=== PATIENT | male | born 1975 | race American Indian/Alaskan Native ===

== ENCOUNTER 2021-08-27 12:45 | Inpatient (IN) | payer SELFPAY ==
[2021-08-27 13:39] LABS: Hematocrit 30.9 % (35.5-45.6); Mean Corpuscular HGB Conc 32 % (32-34); Mean Corpuscular Volume 74 fl (84-94); Platelet Count 285 K/mm3 (140-440); Red Blood Count 4.17 M/mm3 (3.65-5.03)
[2021-08-27 13:40] LABS: Red Cell Distribution Width 22.5 % (13.2-15.2)
[2021-08-27 13:48] LABS: INR 0.97 (0.87-1.13)
[2021-08-27 13:49] LABS: Partial Thromboplastin Time 33.6 Sec. (24.2-36.6)
[2021-08-27] MEDS ORDERED: ACETAMINOPHEN 325 MG TAB PO ONE (13:59)
[2021-08-27] MEDS ORDERED: ONDANSETRON 4 MG/2 ML INJ IV ONE (13:59)
[2021-08-27] MEDS ORDERED: MORPHINE 4 MG/1 ML INJ IV ONE (13:59)
[2021-08-27 14:04] LABS: Alanine Aminotransferase 59 units/L (7-56); Albumin 2.6 g/dL (3.9-5); BUN/Creatinine Ratio 18; Blood Urea Nitrogen 25 mg/dL (9-20); Calcium 9.2 mg/dL (8.4-10.2); Hemolysis Index 3
--- NOTE | 2021-08-27 14:04 | Emergency Department Report ---
ED Extremity Problem HPI - General Chief complaint: Extremity Problem,Nontraumatic Stated complaint: SWOLLEN EXTREMITIES Time Seen by Provider: 08/27/21 13:23 Source: patient, EMS Mode of arrival: Stretcher Limitations: Physical Limitation - History of Present Illness Initial comments: 46-year-old male with a past medical history of CHF, CAD with stent x2, renal insufficiency, gout, hypertension, and CVA June 2021 resulted in some mild memory and communication deficit as well as bilateral lower extremity weakness (right greater than left) with inability to ambulate presents to the hospital today with complaints of progressive worsening lower extremity edema and arm. Patient takes a variety of medications which are not currently available for yunier tateChloe As requested from [facility] at [place]. Patient states he has been informed to take his diuretics as needed for swelling however, he is hesitant to take them due to his underlying renal insufficiency. He does not currently endorse shortness of breath. He states he has a sore to his bottom because he is currently bedbound, not ambulatory, and does not have much assistance at home for care. Patient complains of significant pain to bilateral hands due to gout right greater than left. Patient was admitted at [facility] during his recent CVA and does not have a previous visit here in [facility]. - Related Data Allergies Allergy/AdvReac Type Severity Reaction Status Date / Time No Known Allergies Allergy Verified 08/27/21 12:54 ED Review of Systems ROS: Stated complaint: SWOLLEN EXTREMITIES Other details as noted in HPI Comment: All other systems reviewed and negative ED Physical Exam - General Limitations: Physical Limitation - Other Other exam information: General: No acute distress Head: Atraumatic Eyes: normal appearance ENT: Moist mucous membranes Neck: Normal appearance, no midline tenderness Chest: Clear to auscultation bilaterally CV: Regular rate and rhythm Abdomen: Soft, normal bowel sounds, nontender, nondistended, no rebound or guarding Back: Normal inspection Extremity: arm edema R>L with right hand warmth and erythema and pain with movement, b/l pedal edema Neuro: Alert O x 3, no facial asymmetry, speech clear, lower extremity strength 2/5 with weaker plantar flexion of the right foot compared to the left. upper extremity 3/5 strength. Psych: Appropriate behavior Skin: stage 1 ulcer to gluteal fold and right upper posterior leg ED Course Vital Signs 08/27/21 08/27/21 12:52 14:05 Temperature 99.8 F H Pulse Rate 111 H Respiratory 18 Rate Blood Pressure 124/90 [Left] O2 Sat by Pulse 98 Oximetry ED Medical Decision Making - Lab Data Result diagrams: 08/27/21 13:27 08/27/21 13:27 Lab Results 08/27/21 08/27/21 08/27/21 Range/Units 13:27 13:27 13:27 WBC 19.8 H (4.5-11.0) K/mm3 RBC 4.17 (3.65-5.03) M/mm3 Hgb 10.0 L (11.8-15.2) gm/dl Hct 30.9 L (35.5-45.6) % MCV 74 L (84-94) fl MCH 24 L (28-32) pg MCHC 32 (32-34) % RDW 22.5 H (13.2-15.2) % Plt Count 285 (140-440) K/mm3 Add Manual Diff Complete Total Counted 100 Seg Neutrophils % Planing Machine Operator Seg Neuts % (Manual) 91.0 H (40.0-70.0) % Band Neutrophils % 0 % Lymphocytes % (Manual) 4.0 L (13.4-35.0) % Reactive Lymphs % (Man) 0 % Monocytes % (Manual) 5.0 (0.0-7.3) % Eosinophils % (Manual) 0 (0.0-4.3) % Basophils % (Manual) 0 (0.0-1.8) % Metamyelocytes % 0 % Myelocytes % 0 % Promyelocytes % 0 % Blast Cells % 0 % Nucleated RBC % Not Reportable Seg Neutrophils # Man 18.0 H (1.8-7.7) K/mm3 Band Neutrophils # 0.0 K/mm3 Lymphocytes # (Manual) 0.8 L (1.2-5.4) K/mm3 Abs React Lymphs (Man) 0.0 K/mm3 Monocytes # (Manual) 1.0 H (0.0-0.8) K/mm3 Eosinophils # (Manual) 0.0 (0.0-0.4) K/mm3 Basophils # (Manual) 0.0 (0.0-0.1) K/mm3 Metamyelocytes # 0.0 K/mm3 Myelocytes # 0.0 K/mm3 Promyelocytes # 0.0 K/mm3 Blast Cells # 0.0 K/mm3 WBC Morphology Not Reportable Hypersegmented Neuts Not Reportable Hyposegmented Neuts Not Reportable Hypogranular Neuts Not Reportable Smudge Cells Not Reportable Toxic Granulation Not Reportable Toxic Vacuolation Not Reportable Dohle Bodies Not Reportable Pelger-Huet Anomaly Not Reportable Lawanda Rods Not Reportable Platelet Estimate Consistent w auto Clumped Platelets Not Reportable Plt Clumps, EDTA Not Reportable Large Platelets Few Giant Platelets Not Reportable Platelet Satelliting Not Reportable Plt Morphology Comment Not Reportable RBC Morphology Not Reportable Dimorphic RBCs Not Reportable Polychromasia Not Reportable Hypochromasia 1+ Poikilocytosis Not Reportable Anisocytosis 1+ Microcytosis Not Reportable Macrocytosis Not Reportable Spherocytes Not Reportable Pappenheimer Bodies Not Reportable Sickle Cells Not Reportable Target Cells Not Reportable Tear Drop Cells Not Reportable Ovalocytes Not Reportable Helmet Cells Not Reportable Bajwa-Casar Bodies Not Reportable [place] Rings Not Reportable [place] Cells Not Reportable Bite Cells Not Reportable Crenated Cell Not Reportable Elliptocytes Not Reportable Acanthocytes (Spur) Not Reportable Rouleaux Not Reportable Hemoglobin C Crystals Not Reportable Schistocytes Not Reportable Malaria parasites Not Reportable Stu Bodies Not Reportable Hem Pathologist Commnt No PT 14.0 (12.2-14.9) Sec. INR 0.97 (0.87-1.13) APTT 33.6 (24.2-36.6) Sec. Sodium 138 (137-145) mmol/L Potassium 4.6 (3.6-5.0) mmol/L Chloride 101.1 (98-107) mmol/L Carbon Dioxide 19 L (22-30) mmol/L Anion Gap 23 mmol/L BUN 25 H (9-20) mg/dL Creatinine 1.4 H (0.8-1.3) mg/dL Estimated GFR 55 ml/min BUN/Creatinine Ratio 18 % Glucose 135 H (75-100) mg/dL Calcium 9.2 (8.4-10.2) mg/dL Total Bilirubin 2.20 H (0.1-1.2) mg/dL AST 34 (5-40) units/L ALT 59 H (7-56) units/L Alkaline Phosphatase 169 H (35-129) units/L Troponin T < 0.010 (0.00-0.029) ng/mL NT-Pro-B Natriuret Pep 5878 H (0-450) pg/mL Total Protein 8.0 (6.3-8.2) g/dL Albumin 2.6 L (3.9-5) g/dL Albumin/Globulin Ratio 0.5 % - EKG Data -: EKG Interpreted by Me EKG shows normal: sinus rhythm, ST-T waves (no stemi) Rate: tachycardia (109) - Radiology Data Radiology results: report reviewed CHEST 1 VIEW 08/27/2021 1:46 PM INDICATION / CLINICAL INFORMATION: sob. COMPARISON: None available. FINDINGS: SUPPORT DEVICES: None. HEART / MEDIASTINUM: No significant abnormality. LUNGS / PLEURA: No significant pulmonary or pleural abnormality. No pneumothorax. ADDITIONAL FINDINGS: No significant additional findings. IMPRESSION: 1. No acute findings. - Medical Decision Making 46-year-old male presents to the hospital with complaints of edema. He is also noted to have edema to upper extremities right greater than left with pain, redness, warmth to right hand. Suspicious for gout flare. Patient is noted to have SIRS as per laboratory results and was covered with vancomycin while cultures are pending. Lactic acid is not available at this time due to national shortage of lactic acid tubes required for test. He also appears that patient may benefit for additional at home care since he is currently unable to ambulate since his recent stroke. Patient will be admitted to the hospital service for further evaluation and work-up Critical Care Time: No Critical care attestation.: If time is entered above; I have spent that time in minutes in the direct care of this critically ill patient, excluding procedure time. ED Disposition Clinical Impression: SIRS (systemic inflammatory response syndrome), Gout flare, Edema, History of CVA with residual deficit, Bedbound Disposition: ADMITTED INPATIENT Is pt being admited?: Yes Does the pt Need Aspirin: No Condition: Stable Time of Disposition: 15:49
--- NOTE | 2021-08-27 14:13 | XRay Report ---
CHEST 1 VIEW 08/27/2021 1:46 PM INDICATION / CLINICAL INFORMATION: sob. COMPARISON: None available. FINDINGS: SUPPORT DEVICES: None. HEART / MEDIASTINUM: No significant abnormality. LUNGS / PLEURA: No significant pulmonary or pleural abnormality. No pneumothorax. ADDITIONAL FINDINGS: No significant additional findings. IMPRESSION: 1. No acute findings. Signer Name: Jose Elias Blanco Jr, MD Signed: 08/27/2021 2:08 PM Workstation Name: [id number]
[2021-08-27 15:07] LABS: Anisocytosis 1+; Basophils % (Manual) 0 % (0.0-1.8); Eosinophils % (Manual) 0 % (0.0-4.3); Hypochromasia 1+; Large Platelets Few; Platelet Estimate Consistent w Auto; Total Cells Counted 100
[2021-08-27] MEDS ORDERED: VANCOMYCIN/NS 1 GM/250 ML 1 GM/250 ML BAG IV ONE (15:20)
--- NOTE | 2021-08-27 18:59 | History and Physical Report ---
History of Present Illness Chief complaint: I am not getting any better History of present illness: 46 YO Male with CHF (EF 20), CAD S/P Stent Placement, Gout, CVA complicated by Debility, Obesity Hypoventilation Syndrome, Gout, MDD, Medication Noncompliance presents to ED for evaluation. Patient reports "I feel weak and I am not getting any better". Patient states that for the past 4 weeks he has experienced increased weakness and decreased ability to ambulate. Patient acknowledges decreased exercise tolerance, dyspnea on exertion, dyspnea at rest, orthopnea, as well as paroxysmal nocturnal dyspnea. Patient also acknowledges medication noncompliance. Patient states that he has experienced gradual and progressive generalized weakness as well as generalized edema. EMS was notified and upon arrival the patient was found to be in distress and subsequent transported to [facility] for further care and evaluation of the aforementioned symptoms. The patient was seen and evaluated in the emergency department. All lab and imaging studies reviewed. Patient found to have clinical symptoms consistent with CHF decompensation as well as debility. The patient is currently bedbound and nonambulatory and requires 4/6 assistance with activities of daily living and has a palliative performance score 30%. Patient denies fever, chills, chest pain, palpitation, productive cough, skin rash, recent contact, or known exposure to COVID-19. No prior admission for review. No medication listed at time of admission for reconciliation. Advanced care planning conducted in ED. Past History Past Medical History: heart failure, hypertension, stroke, other (See HPI) Past Surgical History: No surgical history, Other (Reviewed) Social history: single. denies: smoking, alcohol abuse, prescription drug abuse Family history: diabetes, hypertension Medications and Allergies Allergies Allergy/AdvReac Type Severity Reaction Status Date / Time No Known Allergies Allergy Verified 08/27/21 12:54 Review of Systems Constitutional: fatigue, weakness, no weight loss, no chills, no sweats Ears, nose, mouth and throat: no ear pain, no ear discharge, no tinnitis, no decreased hearing, no nasal congestion Cardiovascular: orthopnea, shortness of breath, dyspnea on exertion, paroxysmal nocturnal dyspnea, leg edema, decreased exercise tolerance, no chest pain Respiratory: no cough, no cough with sputum Gastrointestinal: no abdominal pain, no nausea, no vomiting, no diarrhea, no constipation Genitourinary Male: no hematuria, no flank pain, no discharge, no urinary frequency, no urinary hesitancy Rectal: no pain, no incontinence, no bleeding Musculoskeletal: no neck stiffness, no neck pain, no arm numbness/tingling, no low back pain, no shooting leg pain Integumentary: no rash, no pruritis, no redness, no sores, no wounds, no jaundice Neurological: no transient paralysis, no paralysis, no weakness, no numbness, no tingling, no seizures Psychiatric: no anxiety, no memory loss, no insomnia, no hypersomnia, no change in appetite, no suicidal ideation Endocrine: no cold intolerance, no polyphagia, no polydipsia Hematologic/Lymphatic: no easy bruising, no easy bleeding, no lymphedema Allergic/Immunologic: no allergic rhinitis, no anaphylaxis Exam - Constitutional Vitals: Temp Pulse Resp BP Pulse Ox 99.8 F H 90 18 108/70 99 08/27/21 12:52 08/27/21 17:44 08/27/21 17:44 08/27/21 17:44 08/27/21 17:44 General appearance: Present: mild distress - EENT Eyes: Present: PERRL ENT: hearing intact, clear oral mucosa - Neck Neck: Present: supple, normal ROM - Respiratory Respiratory effort: normal Respiratory: bilateral: diminished, rhonchi - Cardiovascular Rhythm: regular Heart Sounds: Present: S1 & S2. Absent: rub, click - Extremities Extremities: pulses symmetrical Extremity abnormal: edema Peripheral Pulses: within normal limits - Abdominal General gastrointestinal: Present: soft, non-tender, non-distended, normal bowel sounds Male genitourinary: Present: normal - Integumentary Integumentary: Present: clear, warm, dry - Musculoskeletal Musculoskeletal: gait normal, strength equal bilaterally - Psychiatric Psychiatric: appropriate mood/affect, intact judgment & insight - Neurologic Neurologic: CNII-XII intact, moves all extremities HEART Score - HEART Score Troponin: Troponin T < 0.010 ng/mL (0.00-0.029) 08/27/21 13:27 Results - Labs CBC & Chem 7: 08/27/21 13:27 08/27/21 13:27 Labs: Abnormal lab results 08/27/21 08/27/21 Range/Units 13:27 13:27 WBC 19.8 H (4.5-11.0) K/mm3 Hgb 10.0 L (11.8-15.2) gm/dl Hct 30.9 L (35.5-45.6) % MCV 74 L (84-94) fl MCH 24 L (28-32) pg RDW 22.5 H (13.2-15.2) % Seg Neuts % (Manual) 91.0 H (40.0-70.0) % Lymphocytes % (Manual) 4.0 L (13.4-35.0) % Seg Neutrophils # Man 18.0 H (1.8-7.7) K/mm3 Lymphocytes # (Manual) 0.8 L (1.2-5.4) K/mm3 Monocytes # (Manual) 1.0 H (0.0-0.8) K/mm3 Carbon Dioxide 19 L (22-30) mmol/L BUN 25 H (9-20) mg/dL Creatinine 1.4 H (0.8-1.3) mg/dL Glucose 135 H (75-100) mg/dL Total Bilirubin 2.20 H (0.1-1.2) mg/dL ALT 59 H (7-56) units/L Alkaline Phosphatase 169 H (35-129) units/L NT-Pro-B Natriuret Pep 5878 H (0-450) pg/mL Albumin 2.6 L (3.9-5) g/dL Assessment and Plan - Patient Problems (1) CHF (congestive heart failure) Current Visit: Yes Status: Acute Qualifiers: Heart failure chronicity: acute on chronic Plan to address problem: CHF protocol: Strict I/O, monitor urine output every shift, daily weight, afterload reduction, blood pressure control, supplemental oxygen, diuresis with Lasix, echocardiogram ordered and pending at time of admission, thyroid panel, magnesium level. Cardiology team consulted in ED. (2) SIRS (systemic inflammatory response syndrome) Current Visit: Yes Status: Acute Plan to address problem: Empiric IV antibiotic therapy x1 dose. CBC, repeat CBC in AM. (3) Obesity hypoventilation syndrome Current Visit: Yes Status: Acute Plan to address problem: Balanced diet, increase physical activity discharge, outpatient pulmonary follow-up for sleep study. Outpatient bariatric surgery evaluation. (4) Debility Current Visit: Yes Status: Acute Plan to address problem: Physical therapy consulted. (5) DVT prophylaxis Current Visit: Yes Status: Acute Plan to address problem: SCD to bilateral lower extremities while in bed (6) Advance care planning Current Visit: Yes Status: Acute Plan to address problem: Disease education conducted, care plan discussed, diagnosis discussed, prognosis discussed, patient is full code. Patient acknowledges understanding and ag reement with care plan, +30 minutes. (7) Preventative health care Current Visit: Yes Status: Acute Plan to address problem: Patient counseled regarding balanced diet, meal planning, increase physical acti vity at discharge, weight reduction, calorie counting, calculation of macronutrients. Risk factor reduction. Patient instructed to follow-up with primary care physician as outpatient for all age and risk factor appropriate screening tests. +30 minutes.
[2021-08-27] MEDS ORDERED: ONDANSETRON 4 MG/2 ML INJ IV PRN (20:00)
[2021-08-27] MEDS ORDERED: oxyCODONE /ACETAMINOPHEN 5-325MG TAB PO PRN (20:00)
[2021-08-27] MEDS ORDERED: ACETAMINOPHEN 325 MG TAB PO PRN (20:00)
[2021-08-27] MEDS ORDERED: HYDROmorphone 0.5 MG/0.5 ML INJ IV PRN (20:00)
[2021-08-27] MEDS ORDERED: ALBUTEROL 2.5 MG/3 ML NEBU IH PRN (20:00)
[2021-08-27 20:47] LABS: Free T4 (Free Thyroxine) 1.21 ng/dL (0.76-1.46)
[2021-08-27] MEDS ORDERED: carvediloL 12.5 MG TAB PO SCH (22:00)
[2021-08-28] MEDS: LISINOPRIL 5 MG TAB PO SCH ×3 (02:07→22:12)
[2021-08-28] MEDS: FUROSEMIDE 20 MG/2 ML INJ IV SCH ×2 (06:16→18:22)
[2021-08-28 10:43] LABS: BUN/Creatinine Ratio 21; Blood Urea Nitrogen 31 mg/dL (9-20); Calcium 9.3 mg/dL (8.4-10.2); Hemolysis Index 0
--- NOTE | 2021-08-28 13:21 | Consultation ---
History of Present Illness Consult date: 08/28/21 Consult reason: other (Edema) History of present illness: This patient is a 46-year-old man who is morbidly obese, with multiple severe comorbidities. He states that his bedridden and wheelchair-bound due to severe disabling gouty arthritis, in addition to an acute CVA which occurred 2 months ago. He reports a history of coronary artery disease and "congestive heart failure", and he describes a cardiac catheterization and coronary stent placement at [facility] a year ago. He admits to poor subsequent cardiology follow-up, but states that he took his cardiac medications until March of this year. He presents to the hospital at this time with complaints of lower extremity edema, but describes no chest pain, no shortness of breath, no palpitations. He was seen in the emergency room and referred for admission. On exam, he is morbidly obese, but has minimal to no significant lower extremity edema. EKG on presentation was a mild sinus tachycardia, left ventricle hypertrophy, poor R wave progression, no acute ST or T wave changes. Chest x-ray revealed a normal size cardiac silhouette and clear lungs. Notable findings on laboratory exam include a marked leukocytosis with a white count of nearly 20,000, anemia with a hematocrit of 30, and elevated liver transaminases with elevated bilirubin of 2.2. Past History Past Medical History: CAD, heart failure, hypertension, stroke Past Surgical History: No surgical history, PTCA Social history: single. denies: smoking, alcohol abuse, prescription drug abuse Family history: diabetes, hypertension Medications and Allergies Allergies Allergy/AdvReac Type Severity Reaction Status Date / Time No Known Allergies Allergy Verified 08/27/21 12:54 Active Meds: Active Medications Acetaminophen (Acetaminophen 325 Mg Tab) 650 mg PO Q4H PRN PRN Reason: Pain MILD(1-3)/Fever >100.5/GARCIA Albuterol (Albuterol 2.5 Mg/3 Ml Nebu) 2.5 mg IH Q4HRT PRN PRN Reason: Shortness Of Breath Furosemide (Furosemide 20 Mg/2 Ml Inj) 20 mg IV BID@0600,1800 AMANDA Last Admin: 08/28/21 06:16 Dose: 20 mg Heparin Sodium (Porcine) (Heparin 5,000 Unit/1 Ml Vial) 5,000 unit SUB-Q Q8HR AMANDA Hydromorphone HCl (Hydromorphone 0.5 Mg/0.5 Ml Inj) 0.5 mg IV Q23H PRN PRN Reason: Pain , Severe (7-10) Lisinopril (Lisinopril 5 Mg Tab) 2.5 mg PO BID [facility] Last Admin: 08/28/21 10:13 Dose: 2.5 mg Ondansetron HCl (Ondansetron 4 Mg/2 Ml Inj) 4 mg IV Q8H PRN PRN Reason: Nausea And Vomiting Oxycodone/Acetaminophen (Oxycodone /Acetaminophen 5-325mg Tab) 1 tab PO Q8H PRN PRN Reason: Pain, Moderate (4-6) Sodium Chloride (Sodium Chloride 0.9% 10 Ml Flush Syringe) 10 ml IV BID [facility] Last Admin: 08/28/21 02:07 Dose: Not Given Sodium Chloride (Sodium Chloride 0.9% 10 Ml Flush Syringe) 10 ml IV PRN PRN PRN Reason: LINE FLUSH Review of Systems Cardiovascular: edema, shortness of breath, no chest pain, no orthopnea, no palpitations, no rapid/irregular heart beat, no syncope, no lightheadedness Physical Examination Vital Signs Temp Pulse BP Pulse Ox 99.8 F H 111 H 124/90 98 08/27/21 12:52 08/27/21 12:52 08/27/21 12:52 08/27/21 12:52 General appearance: no acute distress, obese (Morbidly obese) HEENT: Positive: PERRL Neck: Positive: neck supple Cardiac: Positive: Reg Rate and Rhythm Lungs: Positive: Decreased Breath Sounds Neuro: Positive: Weakness (Generalized weakness, poor mobility due to gouty arthritis and previous CVA) Abdomen: Positive: Soft Male genitourinary: Positive: deferred Skin: Positive: Clear Extremities: Present: edema (Minimal) Results 08/27/21 13:27 08/28/21 09:58 Cardiac Enzymes 08/27/21 Range/Units 13:27 AST 34 (5-40) units/L Coagulation 08/27/21 Range/Units 13:27 PT 14.0 (12.2-14.9) Sec. INR 0.97 (0.87-1.13) APTT 33.6 (24.2-36.6) Sec. CBC 08/27/21 Range/Units 13:27 WBC 19.8 H (4.5-11.0) K/mm3 RBC 4.17 (3.65-5.03) M/mm3 Hgb 10.0 L (11.8-15.2) gm/dl Hct 30.9 L (35.5-45.6) % Plt Count 285 (140-440) K/mm3 Comprehensive Metabolic Panel 08/27/21 08/28/21 Range/Units 13:27 09:58 Sodium 138 137 (137-145) mmol/L Potassium 4.6 4.3 (3.6-5.0) mmol/L Chloride 101.1 101.8 (98-107) mmol/L Carbon Dioxide 19 L 22 (22-30) mmol/L BUN 25 H 31 H (9-20) mg/dL Creatinine 1.4 H 1.5 H (0.8-1.3) mg/dL Glucose 135 H 131 H (75-100) mg/dL Calcium 9.2 9.3 (8.4-10.2) mg/dL AST 34 (5-40) units/L ALT 59 H (7-56) units/L Alkaline Phosphatase 169 H (35-129) units/L Total Protein 8.0 (6.3-8.2) g/dL Albumin 2.6 L (3.9-5) g/dL EKG interpretations - Telemetry EKG Rhythm: Sinus Rhythm (With left ventricle hypertrophy and poor R wave progression) Assessment and Plan - Patient Problems (1) Edema Current Visit: Yes Status: Acute Plan to address problem: Patient's edema is minimal, lungs are clear, cardiac silhouette is normal size, no clinical evidence of fluid overload or heart failure. An echocardiogram will be ordered for left ventricular function assessment at this time. (2) Coronary artery disease Current Visit: Yes Status: Acute Plan to address problem: Patient describes a history of coronary artery disease and prior coronary artery stent placement at [facility]. We will request records for further review. Patient is asymptomatic at this time, but we will resume guideline directed medical therapy for coronary artery disease. An echocardiogram is pending for left ventricular function assessment. Overall, we will pursue conservative medical therapy for asymptomatic coronary artery disease.
--- NOTE | 2021-08-28 14:40 | Progress Note ---
Assessment and Plan --Acute gout flare start prednisone, colchicine, follow clinically -- CHF (congestive heart failure) Current Visit: Yes Status: Acute Qualifiers: Heart failure chronicity: acute on chronic Plan to address problem: CHF protocol: Strict I/O, monitor urine output every shift, daily weight, afterload reduction, blood pressure control, supplemental oxygen, diuresis with Lasix, echocardiogram ordered and pending at time of admission, thyroid panel, magnesium level. Cardiology team consulted in ED. -- SIRS (systemic inflammatory response syndrome) Current Visit: Yes Status: Acute Plan to address problem: Empiric IV antibiotic therapy x1 dose. CBC, repeat CBC in AM. --Morbid Obesity Current Visit: Yes Status: Acute Plan to address problem: Balanced diet, increase physical activity discharge, outpatient pulmonary fo llow-up for sleep study. Outpatient bariatric surgery evaluation. -- Debility Current Visit: Yes Status: Acute Plan to address problem: Physical therapy consulted. -- DVT prophylaxis Current Visit: Yes Status: Acute Plan to address problem: SCD to bilateral lower extremities while in bed -- Advance care planning Current Visit: Yes Status: Acute Plan to address problem: Disease education conducted, care plan discussed, diagnosis discussed, prognosis discussed, patient is full code. Patient acknowledges understanding and agreement with care plan, +30 minutes. -- Preventative health care Current Visit: Yes Status: Acute Plan to address problem: Patient counseled regarding balanced diet, meal planning, increase physical activity at discharge, weight reduction, calorie counting, calculation of macronutrients. Risk factor reduction. Patient instructed to follow-up with primary care physician as outpatient for all age and risk factor appropriate screening tests. +30 minutes. 08/29/21: Patient's edema is minimal, lungs are clear, cardiac silhouette is normal size, c/o left hand swelling. Echocardiogram shows left ventricular ejection fraction 30 to 35%, with regional wall motion abnormalities of old LAD territory infarct. start steroid and colchicine Subjective Date of service: 08/28/21 Interval history: Patient seen and examined. Medical records and medication list reviewed. No acute event overnight noted by the RN. Patient c/o hand and leg swelling and pain. Patient is tolerating diet. Discussed plan of care at bedside with patient. Objective - Exam Narrative Exam: HEENT: Positive: PERRL Neck: Positive: neck supple Cardiac: Positive: Reg Rate and Rhythm Lungs: Positive: Decreased Breath Sounds Neuro: Positive: Weakness (Generalized weakness, poor mobility due to gouty arthritis and previous CVA) Abdomen: Positive: Soft Skin: Positive: Clear Extremities: Present: edema (Minimal), left hand joint swelling - Constitutional Vitals: Vital Signs - 12hr 08/28/21 08/28/21 08/28/21 04:37 07:00 07:36 Temperature 98.8 F 98.9 F Pulse Rate 100 H 104 H 104 H Respiratory 20 Rate Blood Pressure 134/88 122/84 O2 Sat by Pulse 94 97 Oximetry 08/28/21 08/28/21 08/28/21 10:13 11:48 12:00 Temperature 99.6 F Pulse Rate 104 H 107 H Respiratory Rate Blood Pressure 122/84 122/78 O2 Sat by Pulse 95 98 Oximetry - Labs CBC & Chem 7: 08/29/21 09:34 08/29/21 08:05 Labs: Abnormal lab results 08/27/21 08/27/21 08/28/21 Range/Units 13:27 13:27 09:58 Seg Neuts % (Manual) 91.0 H (40.0-70.0) % Lymphocytes % (Manual) 4.0 L (13.4-35.0) % Seg Neutrophils # Man 18.0 H (1.8-7.7) K/mm3 Lymphocytes # (Manual) 0.8 L (1.2-5.4) K/mm3 Monocytes # (Manual) 1.0 H (0.0-0.8) K/mm3 BUN 31 H (9-20) mg/dL Creatinine 1.5 H (0.8-1.3) mg/dL Glucose 131 H (75-100) mg/dL NT-Pro-B Natriuret Pep 5878 H (0-450) pg/mL HEART Score - HEART Score Troponin: Troponin T < 0.010 ng/mL (0.00-0.029) 08/27/21 19:19
[2021-08-28] MEDS: HEPARIN 5,000 UNIT/1 ML VIAL SUB-Q SCH ×2 (15:33→22:08)
[2021-08-28] MEDS: predniSONE 20 MG TAB PO SCH (15:34)
[2021-08-28] MEDS: COLCHICINE 0.6 MG TAB PO SCH (17:30)
[2021-08-28 19:20] LABS: Bilirubin,Urine Negative (Negative); Color,Urine Yellow (Yellow)
[2021-08-28 19:21] LABS: Bacteria,Urine 5 /HPF (Negative); Blood,Urine Small (Negative); Urobilinogen,Urine < 2.0 mg/dL (<2.0)
[2021-08-29] MEDS: FUROSEMIDE 20 MG/2 ML INJ IV SCH (07:25)
[2021-08-29] MEDS: HEPARIN 5,000 UNIT/1 ML VIAL SUB-Q SCH ×3 (07:25→22:00)
[2021-08-29 08:57] LABS: BUN/Creatinine Ratio 28; Blood Urea Nitrogen 42 mg/dL (9-20); Calcium 9.3 mg/dL (8.4-10.2); Hemolysis Index 2
[2021-08-29 09:37] LABS: Hematocrit 29.8 % (35.5-45.6); Hemoglobin 9.5 gm/dl (11.8-15.2); Mean Corpuscular HGB Conc 32 % (32-34); Mean Corpuscular Volume 75 fl (84-94); Platelet Count 325 K/mm3 (140-440); Red Blood Count 3.98 M/mm3 (3.65-5.03)
[2021-08-29 09:46] LABS: Red Cell Distribution Width 22.7 % (13.2-15.2)
[2021-08-29] MEDS: predniSONE 20 MG TAB PO SCH (10:37)
[2021-08-29] MEDS: COLCHICINE 0.6 MG TAB PO SCH (10:37)
[2021-08-29] MEDS: LISINOPRIL 5 MG TAB PO SCH ×2 (10:37→22:00)
--- NOTE | 2021-08-29 11:34 | Progress Note ---
Assessment and Plan - Patient Problems (1) Edema Current Visit: Yes Status: Acute Plan to address problem: Patient's edema is minimal, lungs are clear, cardiac silhouette is normal size, no clinical evidence of fluid overload or heart failure. Echocardiogram shows left ventricular ejection fraction 30 to 35%, with regional wall motion abnormalities of old LAD territory infarct. (2) Coronary artery disease Current Visit: Yes Status: Acute Plan to address problem: Patient describes a history of coronary artery disease and prior coronary artery stent placement at [facility] within the past year to year and a half. We will request records for further review. Patient is asymptomatic at this time, but we will resume guideline directed medical therapy for coronary artery disease. Subjective Date of service: 08/29/21 Principal diagnosis: Acute on chronic systolic heart failure Interval history: Patient is comfortable, no new cardiac complaints. Echocardiogram shows a moderately severe dilated cardiomyopathy, ejection fraction 30 to 35%, with regional wall motion abnormalities consistent with prior LAD territory infarct. Objective Vital Signs Temp Pulse Resp BP BP Pulse Ox 08/29/21 10:37 74 154/76 08/29/21 07:36 98.6 F 95 H 18 116/73 96 08/29/21 03:47 98.7 F 100 H 18 104/67 94 08/29/21 00:00 96 08/28/21 22:12 107 H 130/67 08/28/21 21:14 99.4 F 107 H 20 130/67 96 08/28/21 16:04 98.3 F 94 H 121/84 96 08/28/21 15:00 105 H 08/28/21 12:00 98 08/28/21 11:48 99.6 F 107 H 122/78 95 - Physical Examination HEENT: Positive: PERRL Neck: Positive: neck supple Cardiac: Positive: Reg Rate and Rhythm Lungs: Positive: Decreased Breath Sounds Neuro: Positive: Weakness (Generalized weakness, poor mobility due to gouty arthritis and previous CVA) Abdomen: Positive: Soft Skin: Positive: Clear Extremities: Present: edema (Minimal) - Labs and Meds CBC 08/29/21 Range/Units 09:34 WBC 18.1 H (4.5-11.0) K/mm3 RBC 3.98 (3.65-5.03) M/mm3 Hgb 9.5 L (11.8-15.2) gm/dl Hct 29.8 L (35.5-45.6) % Plt Count 325 (140-440) K/mm3 Comprehensive Metabolic Panel 08/29/21 Range/Units 08:05 Sodium 136 L (137-145) mmol/L Potassium 4.3 (3.6-5.0) mmol/L Chloride 100.7 (98-107) mmol/L Carbon Dioxide 21 L (22-30) mmol/L BUN 42 H (9-20) mg/dL Creatinine 1.5 H (0.8-1.3) mg/dL Glucose 117 H (75-100) mg/dL Calcium 9.3 (8.4-10.2) mg/dL
--- NOTE | 2021-08-29 12:02 | Electrocardiograph Report ---
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
--- NOTE | 2021-08-29 12:08 | Electrocardiograph Report ---
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
[2021-08-29] MEDS: ASPIRIN EC 81 MG TAB PO SCH (12:30)
[2021-08-29] MEDS: CLOPIDOGREL 75 MG TAB PO SCH (12:30)
[2021-08-29] MEDS: FUROSEMIDE 40 MG/4 ML INJ IV SCH (12:31)
[2021-08-29] MEDS: carvediloL 3.125 MG TAB PO SCH ×2 (12:34→22:00)
[2021-08-29] MEDS: DOCUSATE SODIUM 100 MG CAP PO SCH ×2 (12:34→22:00)
--- NOTE | 2021-08-29 12:52 | Progress Note ---
Assessment and Plan --Acute gout flare Continue prednisone, colchicine, follow clinically -- CHF (congestive heart failure) Current Visit: Yes Status: Acute Qualifiers: Heart failure chronicity: acute on chronic Plan to address problem: CHF protocol: Strict I/O, monitor urine output every shift, daily weight, afterload reduction, blood pressure control, supplemental oxygen, diuresis with Lasix, echocardiogram ordered and pending at time of admission, thyroid panel, magnesium level. Cardiology team consulted in ED. -- SIRS (systemic inflammatory response syndrome) Current Visit: Yes Status: Acute Plan to address problem: Empiric IV antibiotic therapy x1 dose. CBC, repeat CBC in AM. --Morbid Obesity Current Visit: Yes Status: Acute Plan to address problem: Balanced diet, increase physical activity discharge, outpatient pulmonary follow-up for sleep study. Outpatient bariatric surgery evaluation. -- Debility Current Visit: Yes Status: Acute Plan to address problem: Physical therapy consulted -needs subacute rehab/13/10 care --Constipation, added stool softener and -- DVT prophylaxis Current Visit: Yes Status: Acute Plan to address problem: SCD to bilateral lower extremities while in bed -- Advance care planning Current Visit: Yes Status: Acute Plan to address problem: Disease education conducted, care plan discussed, diagnosis discussed, prognosis discussed, patient is full code. Patient acknowledges understanding and agreement with care plan, +30 minutes. -- Preventative health care Current Visit: Yes Status: Acute Plan to address problem: Patient counseled regarding balanced diet, meal planning, increase physical activity at discharge, weight reduction, calorie counting, calculation of macronutrients. Risk factor reduction. Patient instructed to follow-up with primary care physician as outpatient for all age and risk factor appropriate screening tests. +30 minutes. 08/28/21: Patient's edema is minimal, lungs are clear, cardiac silhouette is normal size, c/o left hand swelling. Echocardiogram shows left ventricular ejection fraction 30 to 35%, with regional wall motion abnormalities of old LAD territory infarct. start steroid and colchicine 08/29/21: cont c/o left hand pain and unable to lift the hand and also difficulty in ambulating, PT recommended [facility] or 13/10 care Subjective Date of service: 08/29/21 Principal diagnosis: Acute on chronic systolic heart failure Interval history: Patient seen and examined. Medical records and medication list reviewed. No acute event overnight noted by the RN. Patient c/o hand and leg swelling and pain -states that pain slightly improved. Patient is tolerating diet. Patient also mentioned that he did not have bowel movement in 2 weeks Discussed plan of care at bedside with patient. Objective - Exam Narrative Exam: General: Morbidly obese -[place] male HEENT: Positive: PERRL Neck: Positive: neck supple Cardiac: Positive: Reg Rate and Rhythm Lungs: Positive: Decreased Breath Sounds Neuro: Positive: Weakness (Generalized weakness, poor mobility due to gouty arthritis and previous CVA) Abdomen: Positive: Soft Skin: Positive: Clear Extremities: Present: edema (Minimal), left hand joint swelling - Constitutional Vitals: Vital Signs - 12hr 08/29/21 08/29/21 08/29/21 03:47 07:36 10:37 Temperature 98.7 F 98.6 F Pulse Rate 100 H 95 H 74 Respiratory 18 18 Rate Blood Pressure 104/67 116/73 154/76 O2 Sat by Pulse 94 96 Oximetry 08/29/21 08/29/21 12:00 12:34 Temperature 97.9 F Pulse Rate 95 H 74 Respiratory 18 Rate Blood Pressure 108/75 132/69 O2 Sat by Pulse 96 Oximetry - Labs CBC & Chem 7: 08/29/21 09:34 08/29/21 08:05 Labs: Abnormal lab results 08/27/21 08/29/21 08/29/21 Range/Units 18:00 08:05 09:34 WBC 18.1 H (4.5-11.0) K/mm3 Hgb 9.5 L (11.8-15.2) gm/dl Hct 29.8 L (35.5-45.6) % MCV 75 L (84-94) fl MCH 24 L (28-32) pg RDW 22.7 H (13.2-15.2) % Sodium 136 L (137-145) mmol/L Carbon Dioxide 21 L (22-30) mmol/L BUN 42 H (9-20) mg/dL Creatinine 1.5 H (0.8-1.3) mg/dL Glucose 117 H (75-100) mg/dL Urine Blood Small A (Negative) Urine WBC (Auto) 21.0 H (0.0-6.0) /HPF HEART Score - HEART Score Troponin: Troponin T < 0.010 ng/mL (0.00-0.029) 08/27/21 19:19
[2021-08-29] MEDS: POLYETHYLENE GLYCOL 3350 17 GM POWDER PO SCH (13:31)
[2021-08-30] MEDS: HEPARIN 5,000 UNIT/1 ML VIAL SUB-Q SCH ×3 (05:45→21:26)
[2021-08-30] MEDS ORDERED: SPIRONOLACTONE 25 MG TAB PO SCH (10:00)
[2021-08-30] MEDS: ASPIRIN EC 81 MG TAB PO SCH (10:20)
[2021-08-30] MEDS: LISINOPRIL 5 MG TAB PO SCH ×2 (10:20→21:26)
[2021-08-30] MEDS: FUROSEMIDE 40 MG/4 ML INJ IV SCH (10:20)
[2021-08-30] MEDS: predniSONE 20 MG TAB PO SCH (10:21)
[2021-08-30] MEDS: COLCHICINE 0.6 MG TAB PO SCH (10:21)
[2021-08-30] MEDS: carvediloL 3.125 MG TAB PO SCH ×2 (10:21→21:26)
[2021-08-30] MEDS: POLYETHYLENE GLYCOL 3350 17 GM POWDER PO SCH (10:22)
[2021-08-30] MEDS: DOCUSATE SODIUM 100 MG CAP PO SCH ×2 (10:22→21:25)
[2021-08-30] MEDS: CLOPIDOGREL 75 MG TAB PO SCH (10:25)
[2021-08-30 12:56] LABS: BUN/Creatinine Ratio 46; Blood Urea Nitrogen 60 mg/dL (9-20); Calcium 9.1 mg/dL (8.4-10.2); Hemolysis Index 2
--- NOTE | 2021-08-30 13:04 | Progress Note ---
Assessment and Plan - Patient Problems (1) Edema Current Visit: Yes Status: Acute Plan to address problem: Patient's edema is minimal, lungs are clear, cardiac silhouette is normal size, no clinical evidence of fluid overload or heart failure. Echocardiogram shows left ventricular ejection fraction 30 to 35%, with regional wall motion abnormalities of old LAD territory infarct. (2) Coronary artery disease Current Visit: Yes Status: Acute Plan to address problem: Patient describes a history of coronary artery disease and prior coronary artery stent placement at [facility] within the past year to year and a half. We will request records for further review. Patient is asymptomatic at this time, but we will resume guideline directed medical therapy for coronary artery disease. Subjective Date of service: 08/30/21 Principal diagnosis: Acute on chronic systolic heart failure Interval history: Patient looks and feels better, comfortable today, shortness of breath is resolved, no acute distress, no new cardiac events reported. Objective Vital Signs Temp Pulse Resp BP BP Pulse Ox 08/30/21 10:28 96 08/30/21 10:22 98.3 F 90 20 95 08/30/21 10:21 87 115/76 08/30/21 10:20 87 115/76 08/30/21 10:18 115/76 08/30/21 10:11 91.6 F L 87 18 90/60 100 08/30/21 10:00 98 08/30/21 07:00 80 08/30/21 03:18 97.3 F L 78 18 124/82 99 08/30/21 00:00 97 08/29/21 19:28 97.4 F L 95 H 18 110/79 98 08/29/21 17:19 97.9 F 96 H 16 126/72 96 08/29/21 16:56 98.0 F - Physical Examination General: Appears Well, No Apparent Distress, Other (Morbidly obese) HEENT: Positive: PERRL Neck: Positive: neck supple Cardiac: Positive: Reg Rate and Rhythm Lungs: Positive: Decreased Breath Sounds Neuro: Positive: Weakness (Poor mobility due to gouty arthritis and previous CVA) Abdomen: Positive: Soft Skin: Positive: Clear Extremities: Present: edema (Minimal) - Labs and Meds Comprehensive Metabolic Panel 08/30/21 Range/Units 10:27 Sodium 136 L (137-145) mmol/L Potassium 4.0 (3.6-5.0) mmol/L Chloride 101.3 (98-107) mmol/L Carbon Dioxide 22 (22-30) mmol/L BUN 60 H (9-20) mg/dL Creatinine 1.3 (0.8-1.3) mg/dL Glucose 112 H (75-100) mg/dL Calcium 9.1 (8.4-10.2) mg/dL
--- NOTE | 2021-08-30 14:26 | Discharge Summary ---
Providers - Providers Date of Admission: 08/27/21 19:05 Date of discharge: 08/31/21 Attending physician: ALKA JIANG 08/27/21 19:10 Consult to Cardiology [CONS] Routine Consulting Provider: ERNIE LOZOYA Reason For Exam: chf 08/27/21 19:11 Physical Therapy Evaluation and Treat [CONS] Routine Comment: Reason For Exam: weakness 08/28/21 12:52 Occupational Therapy Evaluate and Treat [CONS] Routine Comment: Reason For Exam: Deconditioning Primary care physician: FAUSTINO GIL Hospitalization Condition: Stable Hospital course: This patient is a 46-year-old man who is morbidly obese with multiple severe comorbidities, bedridden and wheelchair-bound due to severe disabling gouty arthritis, in addition to an acute CVA which occurred 2 months ago, coronary artery disease and "congestive heart failure", with a cardiac catheterization and coronary stent placement at [facility] a year ago presents to the hospital on 08/27/21 at this time with complaints of lower extremity edema, but describes no chest pain, no shortness of breath, no palpitations. He was seen in the emergency room and referred for admission. EKG on presentation was a mild sinus tachycardia, left ventricle hypertrophy, poor R wave progression, no acute ST or T wave changes. Chest x-ray revealed a normal size cardiac silhouette and clear lungs. Notable findings on laboratory exam include a marked leukocytosis with a white count of nearly 20,000, anemia with a hematocrit of 30, and elevated liver transaminases with elevated bilirubin of 2.2. Patient was then admitted for further evaluation and mx. 08/28/21: Patient's edema is minimal, lungs are clear, cardiac silhouette is normal size, c/o left hand swelling. Echocardiogram shows left ventricular ejection fraction 30 to 35%, with regional wall motion abnormalities of old LAD territory infarct. start steroid and colchicine 08/29/21: cont c/o left hand pain and unable to lift the hand and also difficulty in ambulating, PT recommended [facility] or 24/ care 08/30/21: Patient improved clinically, hand and leg swelling and pain much improved. Patient is wheelchair bound at his baseline. Plan for discharge today but transportation could not be set up until tomorrow morning. Continue to follow clinically. 08/31/21: Patient clinically stable, transportation has been set up today. Patient will be discharged home in stable condition with 13/10 family and friend care. Assessment and plan --Acute gout flare Continue prednisone, colchicine fpr one week then allopurinol maintenance dose to prevent frequent gout flareup follow clinically -- CHF (congestive heart failure) Current Visit: Yes Status: Acute Qualifiers: Heart failure chronicity: acute on chronic Plan to address problem: CHF protocol: Strict I/O, monitor urine output every shift, daily weight, afterload reduction, blood pressure control, supplemental oxygen, diuresis with Lasix, echocardiogram ordered and pending at time of admission, thyroid panel, magnesium level. Cardiology team consulted in ED. -- SIRS (systemic inflammatory response syndrome) Current Visit: Yes Status: Acute Plan to address problem: Empiric IV antibiotic therapy x1 dose. no source of infection, likely from Gout flare --Morbid Obesity Current Visit: Yes Status: Acute Plan to address problem: Balanced diet, increase physical activity discharge, outpatient pulmonary follow-up for sleep study. Outpatient bariatric surgery evaluation. -- Debility Current Visit: Yes Status: Acute Plan to address problem: Physical therapy consulted -needs subacute rehab/13/10 care --Constipation, added stool softener --elevated LFT, likely from hepatic congestion from chronic CHF -- DVT prophylaxis Current Visit: Yes Status: Acute Plan to address problem: SCD to bilateral lower extremities while in bed -- Advance care planning Current Visit: Yes Status: Acute Plan to address problem: Disease education conducted, care plan discussed, diagnosis discussed, prognosis discussed, patient is full code. Patient acknowledges understanding and agreement with care plan, +30 minutes. -- Preventative health care Current Visit: Yes Status: Acute Plan to address problem: Patient counseled regarding balanced diet, meal planning, increase physical activity at discharge, weight reduction, calorie counting, calculation of macronutrients. Risk factor reduction. Patient instructed to follow-up with primary care physician as outpatient for all age and risk factor appropriate screening tests. +30 minutes. Disposition: HOME HEALTH CARE SERVICE Final Discharge Diagnosis (Prints w/discharge instructions): --Acute gout flare. -- Acute on chronic systolic CHF (congestive heart failure). -- SIRS (systemic inflammatory response syndrome). --Morbid obesity. -- Debility. --h/o CVA. --h/o CAD. --elevated LFT, likely from hepatic congestion from chronic CHF Time spent for discharge: 34 minutes Core Measure Documentation - Palliative Care Palliative Care/ Comfort Measures: Not Applicable - Core Measures Any of the following diagnoses?: history only Exam - Physical Exam Narrative exam: General: Morbidly obese -[place] male HEENT: Positive: PERRL Neck: Positive: neck supple Cardiac: Positive: Reg Rate and Rhythm Lungs: Positive: Decreased Breath Sounds Neuro: Positive: Weakness (Generalized weakness, poor mobility due to gouty arthritis and previous CVA) Abdomen: Positive: Soft Skin: Positive: Clear Extremities: Present: edema (Minimal), left hand joint swelling - Constitutional Vitals: Temp Pulse Resp BP Pulse Ox 97.7 F 97 H 22 111/70 96 08/30/21 13:20 08/30/21 13:20 08/30/21 13:20 08/30/21 13:20 08/30/21 13:20 Plan Activity: fall precautions Diet: low fat, low salt Additional Instructions: f/u with your PCP in one week, repeat LFT in one week Follow up with: FAUSTINO GIL MD [Primary Care Provider] - 3-5 Days Prescriptions: AtorvaSTATin [Lipitor] 40 mg PO QHS #30 tablet Spironolactone [Aldactone] 25 mg PO QDAY #30 tablet Colchicine [Colcrys] 0.6 mg PO QDAY #5 tablet carvediloL [Coreg] 3.125 mg PO BID #60 tablet predniSONE [Deltasone] 20 mg PO QDAY #5 tablet Aspirin EC [Halfprin EC] 81 mg PO QDAY #30 tablet oxyCODONE /ACETAMINOPHEN [Percocet 5/325 mg] 1 tab PO Q8H PRN #10 tablet PRN Reason: Pain, Moderate (4-6) Clopidogrel [Plavix] 75 mg PO QDAY #60 tablet lisinopriL [Zestril TAB] 2.5 mg PO BID #30 tablet allopurinoL [Zyloprim] 100 mg PO QDAY #30 tablet
[2021-08-31 04:30] VITALS: BP 131/82
[2021-08-31] MEDS: HEPARIN 5,000 UNIT/1 ML VIAL SUB-Q SCH (07:39)
--- NOTE | 2021-08-31 09:51 | Progress Note ---
Assessment and Plan --Acute gout flare Continue prednisone, colchicine, follow clinically -- CHF (congestive heart failure) Current Visit: Yes Status: Acute Qualifiers: Heart failure chronicity: acute on chronic Plan to address problem: CHF protocol: Strict I/O, monitor urine output every shift, daily weight, afterload reduction, blood pressure control, supplemental oxygen, diuresis with Lasix, echocardiogram ordered and pending at time of admission, thyroid panel, magnesium level. Cardiology team consulted in ED. -- SIRS (systemic inflammatory response syndrome) Current Visit: Yes Status: Acute Plan to address problem: Empiric IV antibiotic therapy x1 dose. CBC, repeat CBC in AM. --Morbid Obesity Current Visit: Yes Status: Acute Plan to address problem: Balanced diet, increase physical activity discharge, outpatient pulmonary follow-up for sleep study. Outpatient bariatric surgery evaluation. -- Debility Current Visit: Yes Status: Acute Plan to address problem: Physical therapy consulted -needs subacute rehab/13/10 care --Constipation, added stool softener and -- DVT prophylaxis Current Visit: Yes Status: Acute Plan to address problem: SCD to bilateral lower extremities while in bed -- Advance care planning Current Visit: Yes Status: Acute Plan to address problem: Disease education conducted, care plan discussed, diagnosis discussed, prognosis discussed, patient is full code. Patient acknowledges understanding and agreement with care plan, +30 minutes. -- Preventative health care Current Visit: Yes Status: Acute Plan to address problem: Patient counseled regarding balanced diet, meal planning, increase physical activity at discharge, weight reduction, calorie counting, calculation of macronutrients. Risk factor reduction. Patient instructed to follow-up with primary care physician as outpatient for all age and risk factor appropriate screening tests. +30 minutes. 08/28/21: Patient's edema is minimal, lungs are clear, cardiac silhouette is normal size, c/o left hand swelling. Echocardiogram shows left ventricular ejection fraction 30 to 35%, with regional wall motion abnormalities of old LAD territory infarct. start steroid and colchicine 08/29/21: cont c/o left hand pain and unable to lift the hand and also difficulty in ambulating, PT recommended [facility] or / care 08/30/21: Patient improved clinically, hand and leg swelling and pain much improved. Patient is wheelchair bound at his baseline. Plan for discharge today but transportation could not be set up until tomorrow morning. Continue to follow clinically. Subjective Date of service: 08/30/21 Principal diagnosis: Acute on chronic systolic heart failure Interval history: Patient seen and examined. Medical records and medication list reviewed. No acute event overnight noted by the RN. Patient hand and leg swelling and pain -significantly improved. Patient is tolerating diet. Patient was planned for discharge today but transportation could not be set up until tomorrow morning Discussed plan of care at bedside with patient. Objective - Exam Narrative Exam: General: Morbidly obese -[place] male HEENT: Positive: PERRL Neck: Positive: neck supple Cardiac: Positive: Reg Rate and Rhythm Lungs: Positive: Decreased Breath Sounds Neuro: Positive: Weakness (Generalized weakness, poor mobility due to gouty arthritis and previous CVA) Abdomen: Positive: Soft Skin: Positive: Clear Extremities: Present: edema (Minimal), left hand joint swelling - Constitutional Vitals: Vital Signs - 12hr 08/30/21 08/31/21 08/31/21 23:23 02:53 03:54 Temperature 97.7 F 98.0 F Pulse Rate 100 H 85 Respiratory 20 18 Rate Blood Pressure 127/92 131/82 O2 Sat by Pulse 98 98 98 Oximetry - Labs CBC & Chem 7: 08/29/21 09:34 08/30/21 10:27 Labs: Abnormal lab results 08/30/21 Range/Units 10:27 Sodium 136 L (137-145) mmol/L BUN 60 H (9-20) mg/dL Glucose 112 H (75-100) mg/dL HEART Score - HEART Score Troponin: Troponin T < 0.010 ng/mL (0.00-0.029) 08/27/21 19:19
== END 2021-08-31 09:20 | disposition home health service (06) | DRG 291 ==
LOC: ED 12:45 → 4A 19:05
PROVIDERS: ADMIT Internal Medicine; ATTEND Internal Medicine
DX: I11.0 Hypertensive heart disease with heart failure (principal); I50.23 Acute on chronic systolic (congestive) heart failure; E66.2 Morbid (severe) obesity with alveolar hypoventilation; Z68.41 Body mass index [BMI] 40.0-44.9, adult; R65.10 Systemic inflammatory response syndrome (SIRS) of non-infectious origin without acute organ dysfunction; Z86.73 Personal history of transient ischemic attack (TIA), and cerebral infarction without residual deficits; R53.81 Other malaise; I25.10 Atherosclerotic heart disease of native coronary artery without angina pectoris; Z83.3 Family history of diabetes mellitus; Z82.49 Family history of ischemic heart disease and other diseases of the circulatory system
CPT/HCPCS: 36415; 71045; 80048; 80053; 81001; 83735; 83880; 84439; 84443; 84484; 85007; 85025; 85027; 85610; 85730; 87040; 87086; 93005; 93306; G0378; C8929; J1644; J1940; J2270; J2405; J3370

== ENCOUNTER 2021-09-12 18:26 | Emergency (ER) | payer SELFPAY ==
--- NOTE | 2021-09-12 19:14 | Emergency Department Report ---
HPI - HPI HPI: This is a 46-year-old -[place] male who presents to the emergency department with a complaint of pain to the bilateral hands and feet that he says is a gout flareup. He has a past medical history of CHF, coronary artery disease with previous CT and stent x2, gout, CVA in June 2019 to the left him with some mild cognitive deficits and bilateral lower extremity weakness, hypertension and CHF. The patient was recently admitted to this hospital about 2 weeks ago for bilateral upper and lower extremity pain and edema, that was at least partially attributed to a gout flareup. The patient says that he has been having a flareup over the past 3 to 4 days and has been taking some colchicine, but thinks he took his last pill. He denies any fever, chest pain, shortness of breath, rash. <GIOVANNA LEIGH - Last Filed: 09/12/21 21:27> - General PUI?: No <ALFRED MACHADO - Last Filed: 09/12/21 23:11> - General Chief Complaint: Pain General Time Seen by Provider: 09/12/21 18:37 ED Past Medical Hx - Past Medical History Previous Medical History?: Yes Hx Hypertension: Yes Hx Congestive Heart Failure: Yes - Social History Smoking Status: Never Smoker <GIOVANNA LEIGH - Last Filed: 09/12/21 21:27> <ALFRED MACHADO - Last Filed: 09/12/21 23:11> - Medications Home Medications: Home Medications Medication Instructions Recorded Confirmed Last Taken Type Aspirin EC [Halfprin EC] 81 mg PO QDAY #30 tablet 08/30/21 Unknown Rx AtorvaSTATin [Lipitor] 40 mg PO QHS #30 tablet 08/30/21 Unknown Rx Clopidogrel [Plavix] 75 mg PO QDAY #60 tablet 08/30/21 Unknown Rx Colchicine [Colcrys] 0.6 mg PO QDAY #5 tablet 08/30/21 Unknown Rx Spironolactone [Aldactone] 25 mg PO QDAY #30 tablet 08/30/21 Unknown Rx allopurinoL [Zyloprim] 100 mg PO QDAY #30 tablet 08/30/21 Unknown Rx carvediloL [Coreg] 3.125 mg PO BID #60 tablet 08/30/21 Unknown Rx lisinopriL [Zestril TAB] 2.5 mg PO BID #30 tablet 08/30/21 Unknown Rx oxyCODONE /ACETAMINOPHEN [Percocet 1 tab PO Q8H PRN #10 tablet 08/30/21 Unknown Rx 5/325 mg] predniSONE [Deltasone] 20 mg PO QDAY #5 tablet 08/30/21 Unknown Rx ED Review of Systems ROS: Stated complaint: GOUT Other details as noted in HPI Comment: All other systems reviewed and negative Constitutional: denies: chills, fever Eyes: denies: eye pain, vision change ENT: denies: ear pain, throat pain Respiratory: denies: cough, shortness of breath Cardiovascular: denies: chest pain, palpitations Gastrointestinal: denies: abdominal pain, vomiting Genitourinary: denies: dysuria, discharge Musculoskeletal: arthralgia. denies: back pain Skin: denies: rash, lesions Neurological: denies: headache, weakness <GIOVANNA LEIGH - Last Filed: 09/12/21 21:27> ROS: Stated complaint: GOUT Other details as noted in HPI <ALFRED MACHADO - Last Filed: 09/12/21 23:11> Physical Exam - Physical Exam Physical Exam: GENERAL: The patient is well-developed well-nourished. HENT: Normocephalic. Atraumatic. Patient has moist mucous membranes. EYES: Extraocular motions are intact. NECK: Supple. Trachea is midline. CHEST/LUNGS: Clear to auscultation. There is no respiratory distress noted. HEART/CARDIOVASCULAR: Regular. There is no tachycardia. There is no murmur. ABDOMEN: Abdomen is soft, nontender. Patient has normal bowel sounds. There is no abdominal distention. SKIN: Skin is warm and dry. NEURO: The patient is awake, alert, and oriented. The patient is cooperative. Normal speech. MUSCULOSKELETAL: There is some mild tenderness to palpation to the knuckles/MCP joints of the bilateral hands, as well as the bilateral midfoot, but no obvious deformity. There is some mild swelling to the bilateral MCP joints but no erythema, warmth or fluctuance. Radial pulse +2/4 and capillary refill less than 2 seconds to the bilateral upper extremities. Dorsalis pedis pulse +2/4 to the bilateral lower extremities. <GIOVANNA LEIGH S - Last Filed: 09/12/21 21:27> - Physical Exam Vital Signs: Vital Signs 09/12/21 09/12/21 09/12/21 22:04 22:29 22:33 Temperature 98.0 F 98.0 F Pulse Rate 126 H 126 H Respiratory 19 19 19 Rate Blood Pressure 106/73 Blood Pressure 109/77 [Right] O2 Sat by Pulse 99 99 99 Oximetry <ALFRED MACHADO - Last Filed: 09/12/21 23:11> ED Course Vital Signs 09/12/21 09/12/21 09/12/21 22:04 22:29 22:33 Temperature 98.0 F 98.0 F Pulse Rate 126 H 126 H Respiratory 19 19 19 Rate Blood Pressure 106/73 Blood Pressure 109/77 [Right] O2 Sat by Pulse 99 99 99 Oximetry <ALFRED MACHADO - Last Filed: 09/12/21 23:11> ED Medical Decision Making - Lab Data Result diagrams: 09/12/21 20:43 09/12/21 20:43 - Medical Decision Making The patient will be signed out to Dr Machado to evaluate the patient for pain control and assist with further disposition. <GIOVANNA LEIGH - Last Filed: 09/12/21 21:27> - Lab Data Result diagrams: 09/12/21 20:43 09/12/21 20:43 <ALFRED MACHADO - Last Filed: 09/12/21 23:11> Critical care attestation.: If time is entered above; I have spent that time in minutes in the direct care of this critically ill patient, excluding procedure time. <GIOVANNA LEIGH - Last Filed: 09/12/21 21:27> Critical care attestation.: If time is entered above; I have spent that time in minutes in the direct care of this critically ill patient, excluding procedure time. <ALFRED MACHADO - Last Filed: 09/12/21 23:11> ED Disposition <GIOVANNA LEIGH - Last Filed: 09/12/21 21:27> Is pt being admited?: No Does the pt Need Aspirin: No <ALFRED MACHADO - Last Filed: 09/12/21 23:11> Clinical Impression: CHF (congestive heart failure), Gout flare, Gouty arthritis Disposition: 01 HOME / SELF CARE / HOMELESS Condition: Stable Instructions: Heart Failure, Diagnosis, [id number]
[2021-09-12] MEDS ORDERED: predniSONE 20 MG TAB PO ONE (19:16)
[2021-09-12] MEDS ORDERED: COLCHICINE 0.6 MG TAB PO ONE (19:16)
[2021-09-12 20:55] LABS: Basophils # (Auto) 0.1 K/mm3 (0.0-0.1); Basophils % (Auto) 0.7 % (0.0-1.8); Eosinophils # (Auto) 0.1 K/mm3 (0.0-0.4); Eosinophils % (Auto) 0.4 % (0.0-4.3); Hematocrit 32.5 % (35.5-45.6); Lymphocytes # (Auto) 0.9 K/mm3 (1.2-5.4); Lymphocytes % (Auto) 5.1 % (13.4-35.0); Mean Corpuscular HGB Conc 34 % (32-34); Mean Corpuscular Volume 75 fl (84-94); Monocytes # (Auto) 1.6 K/mm3 (0.0-0.8); Monocytes % (Auto) 8.5 % (0.0-7.3); Platelet Count 490 K/mm3 (140-440); Red Blood Count 4.31 M/mm3 (3.65-5.03)
[2021-09-12 21:02] LABS: Red Cell Distribution Width 24.4 % (13.2-15.2)
[2021-09-12 21:16] LABS: Calcium 9.1 mg/dL (8.4-10.2); Uric Acid 9.4 mg/dL (3.5-7.6)
--- NOTE | 2021-09-12 23:08 | XRay Report ---
CHEST 1 VIEW INDICATION / CLINICAL INFORMATION: Dyspnea. COMPARISON: None available. FINDINGS: SUPPORT DEVICES: None. HEART / MEDIASTINUM: Heart size is within normal limits. Mediastinal contour demonstrates no signific ant abnormality. LUNGS / PLEURA: Lungs are clear for degree of inspiration and technique utilized. Stable elevation ri ght hemidiaphragm. BONES: No significant osseous abnormality. ADDITIONAL FINDINGS: No significant additional findings. IMPRESSION: 1. No active cardiopulmonary disease. Signer Name: Loco Mason II, MD Signed: 09/12/2021 11:04 PM Workstation Name: [id number]
[2021-09-12] MEDS ORDERED: HYDROcodone/ACETAMINOPHEN 5-325 MG TAB PO ONE (23:10)
[2021-09-14 14:51] VITALS: BP 115/65
== END 2021-09-14 17:07 | disposition home or self-care (01) ==
LOC: ED 18:26
DX: I50.9 Heart failure, unspecified (principal); M10.9 Gout, unspecified; I10 Essential (primary) hypertension
CPT/HCPCS: 36415; 71045; 80048; 84550; 85025; 99284